=== PATIENT | female | born 1940 | race African-American/Black ===

== ENCOUNTER 2024-12-17 12:44 | Observation (INO) | payer OTHER, BC ==
[2024-12-17 13:10] VITALS: TEMP 98; BMI 21.7
[2024-12-17] MEDS: SODIUM CHLORIDE 0.9% 500 ML INFUS.BAG IV ONE (14:00)
[2024-12-17 15:55] LABS: BASO % 0.6 % (0-2.0); EOS % 3.5 % (0-4.5); HEMATOCRIT 42.1 % (32.4-45.2); HEMOGLOBIN 13.9 GM/dL (10.7-15.3); LYMPH % 31.8 % (8-40); MCH 29.2 pg (25.7-33.7); MCHC 32.9 g/dl (32.0-36.0); MEAN CELL VOLUME 88.7 fl (80-96); MEAN PLT VOLUME 8.8 fl (7.5-11.1); MONO % 8.2 % (3.8-10.2); NEUT % 55.9 % (42.8-82.8); PLATELET COUNT 267 10^3/uL (134-434); RBC 4.74 M/mm3 (3.60-5.2); RDW 14.2 % (11.6-15.6); WHITE BLOOD COUNT 9.4 K/mm3 (4.0-10.0)
[2024-12-17 15:58] LABS: VENOUS BASE EXCESS 1.8 mmol/L (-2-2); VENOUS O2 SATURATION 40.5 % (70-80); VENOUS PCO2 52.7 mmHg (38-52); VENOUS PH 7.35 (7.310-7.410)
[2024-12-17 16:04] LABS: INR 0.98 (0.83-1.09); PROTHROMBIN TIME (PATIENT) 10.8 SEC (9.7-13.0)
[2024-12-17 16:17] LABS: POTASSIUM 4.7 mmol/L (3.5-5.1)
[2024-12-17 16:20] LABS: ALBUMIN 3.7 g/dl (3.4-5.0); BLOOD UREA NITROGEN 21.6 mg/dL (7-18); CALCIUM 9.4 mg/dL (8.5-10.1)
[2024-12-17 16:25] LABS: BILIRUBIN,TOTAL 0.5 mg/dL (0.2-1); TOT PROT 7.9 g/dl (6.4-8.2)
[2024-12-17 17:36] LABS: HIV INTERPRETATION NEGATIVE (NEGATIVE)
[2024-12-17 19:47] VITALS: PULSE 94; RESP 20
[2024-12-17] MEDS ORDERED: LISINOPRIL 5 MG TABLET ONE (21:56)
[2024-12-17] MEDS ORDERED: LABETALOL HCL 20 MG/4 ML VIAL ONE (21:57)
[2024-12-17] MEDS: LISINOPRIL 5 MG TABLET PO SCH (22:00)
[2024-12-17 22:01] VITALS: BP 163/108
[2024-12-17] MEDS: LABETALOL HCL 20 MG/4 ML VIAL IVPUSH ONE (22:05)
[2024-12-17 22:10] LABS: URINE APPEARANCE CLEAR; URINE BILIRUBIN NEGATIVE (NEGATIVE); URINE COLOR YELLOW; URINE GLUCOSE (UA) NEGATIVE (NEGATIVE); URINE KETONE NEGATIVE (NEGATIVE); URINE LEUK ESTERASE NEGATIVE (NEGATIVE); URINE NITRITE NEGATIVE (NEGATIVE); URINE PROTEIN NEGATIVE (NEGATIVE); URINE UROBILINOGEN 0.2 mg/dL (0.2-1.0)
[2024-12-17 22:52] LABS: N-TERMINAL BNP 676.7 pg/ml (5-450)
== END 2024-12-17 23:55 | disposition left against medical advice (07) ==
LOC: JER 12:44 → JERBED 21:31
PROVIDERS: ADMIT Student in an Organized Health Care Education/Training Program; ATTEND Physician Assistant
PROC: 3E033GC Introduction of Other Therapeutic Substance into Peripheral Vein, Percutaneous Approach (ICD-10-PCS; principal; 2024-12-17)
PROC: 3E0337Z Introduction of Electrolytic and Water Balance Substance into Peripheral Vein, Percutaneous Approach (ICD-10-PCS; 2024-12-17)
DX: R79.89 Other specified abnormal findings of blood chemistry (principal); I10 Essential (primary) hypertension; Z98.49 Cataract extraction status, unspecified eye; H34.8192 Central retinal vein occlusion, unspecified eye, stable; Z90.49 Acquired absence of other specified parts of digestive tract
CPT/HCPCS: 36415; 70450-TC; 71045-TC-FY; 80053; 81003; 82803; 82962; 83605; 83880; 84439; 84443; 84484; 85025; 85610; 85730; 86803; 86850; 86900; 86901; 87086; 87389; 93005; 93010; 96374; 99285-25; G0378